=== PATIENT | female | born 1955 | race Caucasian/White ===

== ENCOUNTER → 2017-07-17 08:07 | Outpatient (CLI) | payer OTHER, SELFPAY ==
--- NOTE | 2017-07-17 08:10 | BI_ITS ---
MAMMOGRAPHY - BILATERAL SCREENING 3-D ORI SYNTHESIS REASON FOR EXAM: Female, 61 years old. Bilateral Screening 3-D tomosynthesis PERTINENT HISTORY: No significant family history. TECHNIQUE: 2-D mammograms and 3-D Ori synthesis of the breast (s) were performed. CAD was performed. COMPARISON: June 26, 2016. FINDINGS: The breast composition is composed of scattered fibroglandular density. Scattered benign calcifications are seen. No dense spiculated masses or suspicious microcalcifications are identified. No architectural distortion is identified. There is no skin thickening or retraction. There has been no significant change since the prior study. BI/SCREENING MAMM (CAD), BILAT IMPRESSION: No mammographic signs of malignancy. Routine yearly mammograms recommended. ASSESSMENT CATEGORY: BIRADS Category 1: Negative. A letter regarding these results will be sent to the patient by the facility within 30 days. FOLLOW UP RECOMMENDATION: Yearly follow up mammogram recommended. (A) Approximately 10% of breast cancers are not detected by mammography. A normal mammogram should not delay biopsy of a clinically suspicious abnormality. Electronically Signed: Shiraz Coates MD at 11:20 EDT , Service support ,
--- NOTE | 2017-07-17 08:15 | BD_ITS ---
STUDY: DUAL ENERGY X-RAY ABSORPTIOMETRY / DXA REASON FOR EXAM: Female, 61 years old. Bone density screening. TECHNIQUE: Bone Mineral Density (BMD) measurements of lumbar spine and left hip were obtained. COMPARISON: June 02, 2015 FINDINGS: Lumbar Spine (L1-L2): g/cm2 (0.795) / T-score (-3.1) / Z-score (-1.7) Findings are suggestive of osteoporosis with a high fracture risk. Left Femur Total: g/cm2 (1.111) / T-score (0.8) / Z-score (1.9) Left Femoral Neck: g/cm2 (0.933) / T-score (-0.8) / Z-score (0.6) The T-Scores on the most recent prior examination were: Lumbar Spine (L1-L4): There has been improvement of bone density since the previous examination. BD/Dexa Bone Density Study IMPRESSION: The patient is considered osteoporotic as outlined below according to World Blade Organization (WHO) criteria with a high fracture risk. There has been improvement of bone density since the previous examination. Reference Information: The T-score is the number of standard deviations above or below the standard which is normal for young adults at their peak bone mineral density. The World Health Organization (WHO) interprets the T-scores as follows: Above -1 Normal bone density Between -1 and -2.5 Osteopenia Equal to / or below -2.5 Osteoporosis As a practical clinical guideline, osteopenia may be graded as follows: Mild -1 through -1.5 Moderate -1.6 through -2.0 Severe -2.1 through -2.4 The Z-score is the number of standard deviations above or below age-matched controls. A Z-score of less than -1.5 would be considered abnormal. References: 1. NIH Osteoporosis and Related Bone Diseases http://www.osteo.org 2. International Society for Clinical Densitometry http://www.iscd.org 3. National Osteoporosis Foundation http://www.nof.org Electronically Signed: Tracy Perez MD at 9:02 EDT , Service support ,
== END ==
PROVIDERS: Family Provider Internal Medicine; PCP Internal Medicine; Visit Provider Internal Medicine
DX: Z78.0 Asymptomatic menopausal state (principal); Z12.31 Encounter for screening mammogram for malignant neoplasm of breast
CPT/HCPCS: 77063; 77067; 77080

== ENCOUNTER → 2018-01-03 09:06 | Outpatient (CLI) | payer OTHER, SELFPAY ==
--- NOTE | 2018-01-03 09:09 | RAD_ITS ---
STUDY: X-RAY - RIGHT HAND REASON FOR EXAM: Arthritis. TECHNIQUE: 3 view(s) of the hand. COMPARISON: Radiographs 04/06/2014. FINDINGS: Normal radiocarpal articulation. Normal distal radioulnar joint. There is subchondral cystic change of the proximal ulnar aspect of the lunate as on the prior study. There is a small cyst in the distal pole of the scaphoid. Normal carpal articulations Normal carpometacarpal articulation of the thumb. Normal second through fifth carpometacarpal joints. Normal metacarpi. Normal metacarpophalangeal joint of the thumb. Normal interphalangeal joint of the thumb. Normal proximal and distal phalanges of the thumb. There is a subchondral cyst of the radial aspect of the third metacarpal head as on the prior study. Normal proximal and distal interphalangeal joints of the second through fifth fingers. Normal phalanges of the second through fifth fingers. The soft tissue structures are unremarkable. RAD/Hand Min 3 Views IMPRESSION: Cysts in the lunate, scaphoid and third metacarpal head. Electronically Signed: Estuardo Gutierrez MD at 9:57 EDT Tel , Service support ,
--- NOTE | 2018-01-03 09:09 | RAD_ITS ---
STUDY: X-RAY - LEFT KNEE REASON FOR EXAM: Arthritis. TECHNIQUE: 4 view(s) of the knee. COMPARISON: Radiographs 08/15/2016. FINDINGS: Normal visualized distal femur. Normal visualized proximal tibia and fibula. Normal proximal tibiofibular articulation. There is moderate joint space narrowing of the medial femorotibial compartment, increased since the prior study. Normal lateral femorotibial compartment. There is mild joint space narrowing of the patellofemoral articulation, similar to the prior study. The soft tissue structures are unremarkable. RAD/Knee 4 or More Views IMPRESSION: Degenerative arthrosis of the medial femorotibial and patellofemoral compartments. Electronically Signed: Estuardo Gutierrez MD at 9:30 EDT Tel , Service support ,
--- NOTE | 2018-01-03 09:09 | RAD_ITS ---
STUDY: X-RAY - LEFT HAND REASON FOR EXAM: Arthritis. TECHNIQUE: 3 view(s) of the hand. COMPARISON: Radiographs 04/06/2014. FINDINGS: Normal radiocarpal articulation. Normal distal radioulnar joint. There is an erosion of the proximal lunate without interval change. Normal carpal articulations There are marginal osteophytes and joint moderately severe space loss of the carpometacarpal articulation of the thumb as on the prior study. Normal second through fifth carpometacarpal joints. Normal metacarpi. Normal metacarpophalangeal joint of the thumb. Normal interphalangeal joint of the thumb. Normal proximal and distal phalanges of the thumb. Normal metacarpophalangeal joints of the second through fifth fingers. Normal proximal and distal interphalangeal joints of the second through fifth fingers. Normal phalanges of the second through fifth fingers. The soft tissue structures are unremarkable. RAD/Hand Min 3 Views IMPRESSION: Erosion of the lunate without interval change. Degenerative arthrosis of the first carpometacarpal joint. Electronically Signed: Estuardo Gutierrez MD at 9:58 EDT Tel , Service support ,
--- NOTE | 2018-01-03 09:09 | RAD_ITS ---
STUDY: X-RAY - LEFT FOOT CLINICAL: Arthritis. TECHNIQUE: 3 view(s) of the foot. COMPARISON: Radiographs 04/06/2014. FINDINGS: Normal talus, calcaneus, and tarsal bones. Normal visualized subtalar, talonavicular, calcaneocuboid, tarsal and tarsometatarsal articulations. Normal metatarsi. Normal metatarsophalangeal joint of the great toe. There is a bipartite tibial sesamoid. There is interval development of joint space narrowing of the interphalangeal joint of the great toe. Normal phalanges of the great toe. Normal second through fifth metatarsophalangeal joints. Normal interphalangeal joints and phalanges of the lesser toes. The soft tissue structures are unremarkable. RAD/Foot min 3 Views IMPRESSION: Degenerative arthrosis of the interphalangeal joint of the first digit. Electronically Signed: Estuardo Gutierrez MD at 9:44 EDT Tel , Service support ,
--- NOTE | 2018-01-03 09:09 | RAD_ITS ---
STUDY: X-RAY - RIGHT KNEE REASON FOR EXAM: Arthritis. TECHNIQUE: 4 view(s) of the knee. COMPARISON: None. FINDINGS: Normal visualized distal femur. Normal visualized proximal tibia and fibula. Normal proximal tibiofibular articulation. There is mild joint space narrowing of the medial femorotibial compartment. Normal lateral femorotibial compartment. There is mild joint space narrowing of the patellofemoral articulation. The soft tissue structures are unremarkable. RAD/Knee 4 or More Views IMPRESSION: Mild degenerative arthrosis of the medial femorotibial and patellofemoral compartments. Electronically Signed: Estuardo Gutierrez MD at 9:30 EDT Tel , Service support ,
--- NOTE | 2018-01-03 09:09 | RAD_ITS ---
STUDY: X-RAY - RIGHT FOOT CLINICAL: Arthritis. TECHNIQUE: 3 view(s) of the foot. COMPARISON: Radiographs 04/06/2014. FINDINGS: Normal talus, calcaneus, and tarsal bones. Normal visualized subtalar, talonavicular, calcaneocuboid, tarsal and tarsometatarsal articulations. Normal metatarsi. There is moderate joint space narrowing of the metatarsophalangeal joint of the great toe as on the prior study. Normal tibial and fibular sesamoid bones. Normal interphalangeal joint of the great toe. Normal phalanges of the great toe. Normal second through fifth metatarsophalangeal joints. Normal interphalangeal joints and phalanges of the lesser toes. The soft tissue structures are unremarkable. RAD/Foot min 3 Views IMPRESSION: Degenerative arthrosis of the first metatarsophalangeal joint. Electronically Signed: Estuardo Gutierrez MD at 9:44 EDT Tel , Service support ,
== END ==
PROVIDERS: Family Provider Internal Medicine; PCP Internal Medicine; Visit Provider Internal Medicine
DX: M25.50 Pain in unspecified joint (principal)
CPT/HCPCS: 73130; 73564; 73630

== ENCOUNTER 2018-06-24 08:00 | Outpatient (RCR) | payer OTHER, SELFPAY ==
--- NOTE | 2018-05-23 10:28 | HP.PTEVAL_ITS ---
Patient's Visit Information TOI SANDOVAL is a 62 year old F referred to Physical Therapy by Meera James DO with a diagnosis of L knee OA, recent stem cell injection. Date of Evaluation: 05/23/18 Physical Therapist: Quoc Burt DPT - Visit Plan Frequency: 2x /Week Duration: 4 Weeks Plan: Start with OKC hip/core/knee stability exercises. Add in CKC as tolerated. Do not push through pain with exercises. May use ice to reduce symptoms. - Subjective Findings: Pt. is here today for her initial evaluation with L knee pain. 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 Pt. reports having steroid injections, stem cell injections. Pt. has a L medial meniscal tear and has OA at medial and patellar joints. Increased pain: walking, kneeling, steps. Better: stopping doing the things that make it worse. Ice has beneficial. Pt. denies N/T in either LE. Pt. is to follow up with physician on . Pt. 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 - Pain L knee Pain Intensity (Out of 10): 0 Pain Intensity Range: 0, 3 Comment: popping - Objective POSTURE: Pt. stands with slight knee flexion on LLE, wt. shift to R side. PALPATION: Pt. has tenderness at medial joint line and medial/lateral aspect of popliteal fossa. NEURO: Normal sensation, normal DTR bilatearlly. ROM: R knee 0-0-137deg. L knee 0-2-119deg increased pain at end range. MMT: RLE- ankle 5/5 throughout; knee- ext 4+/5, flexion 4+/5: hip- flexion 4+/5, abd 4/5, ext 4+/5. LLE- ankle 5/5 throughout; knee- ext 4/5, flexion 4/5; hip- flexion 4/5, abd 4/5, ext 4+/5. Core strenth- poor+. GAIT: Pt. ambulates without AD. Pt. lacks TKE on LLE duing stance phase and slight decrease in knee flexion during swing phase. STAIRS: step to pattern loading RLE only with 2 HR. - Goals Goal 1:: Pt. to be I with HEP. Goal Time Frame: 4-6 Weeks Goal 2:: Pt. to have L knee ROM to 0-0-125deg without increase in symptims. Goal Time Frame: 4-6 Weeks Goal 3:: Pt. to ambulate unlimited distances without increase in symptoms. Goal Time Frame: 4-6 Weeks Goal 4:: Pt. to sleep throughout the night without increase in symptoms. Goal Time Frame: 4-6 Weeks Goal 5:: Pt. to have increased L LE strenth by 1/2 grade of all effected musculature. Goal Time Frame: 4-6 Weeks Goal 6:: Pt. to negotiate steps with reciprocal pattern with 1 HR without increase in symptoms. Goal Time Frame: 4-6 Weeks - Rehabilitation Potential Physical Therapy Diagnosis: Pt. has signs and symptoms consistent with L knee OA. Pt. had recent stem cell injection and is need of LLE and core strengthening to reduce stress applied to L knee joint with all functional mobility. Rehabilitation Potential: Good - Anticipated Interventions Patient/Client Instruction: Educate patient on: Condition, Plan of Care, Risk Factors, Benefits of Fitness Program For the Purpose of:: To facilitate caregiver knowledge, To improve self management, To prevent re-injury, To improve ability to perform tasks related to life management, To improve tolerance to ADL's Therapeutic Exercise to Include: Strength training, Power training, Endurance training, Balance training, Postural training, Flexibilty training, Gait and locomotor training, Passive ROM, Active ROM For the Purpose of:: To decrease pain, To increase ROM, To improve nutrient delivery to tissue, To increase oxygenation perfusion, To improve muscle performance and motor function, To improve ability to perform ADL's, To improve health of tissue, To decrease soft tissue restriction, To increase flexibility/ROM IF ES: Yes Cryotherapy (ice pack, ice massage): Yes Vasopneumatic device: Yes For the Purpose of:: To decrease pain, To decrease swelling/inflammation, To increase ROM Thank you for the opportunity to evaluate your patient. For Medicare and Medicare HMO plans, please review the plan of care and approve it. It will need to be FAXED BACK to us at [phone] for Medicare purposes. For Medicare only, by signing this I certify the plan of care. Please let me know if there are questions or concerns regarding this plan of care. Physician Signature: Date:
--- NOTE | 2018-06-24 09:24 | HP.PTDCSUM ---
HP - PT D/C Summary It has been my pleasure to treat TOI SANDOVAL under orders from Meera James DO, for the diagnosis of L knee OA, recent stem cell injection for a total of 9 visit(s). Discharge Date: 06/24/18 Please see the following information for a summary of their discharge status. - Subjective Subjective: Pt. reports I am doing much better.' Pt. reports being 85% better overall. She is independent with HEP and is completing. Pt. reports minimal symptoms and is pleaesd with her progress. - Pain L knee Pain Intensity (Out of 10): 1 - Overall Improvement % Improvement: 85 - Objective Objective/Function: Pt. has good ROM, mild lacking in ext. Pt. has slight tenderness at end ranges of motion. Pt. is able to ambulate unlimited distances. Pt. is able to negotiate steps wtih mild increas in symptoms with descending. Pt. - Goals Goal 1:: Pt. to be I with HEP. Goal Progress: Goal Met Goal 2:: Pt. to have L knee ROM to 0-0-125deg without increase in symptims. Goal Progress: Goal Met Goal 3:: Pt. to ambulate unlimited distances without increase in symptoms. Goal Progress: Goal Met Goal 4:: Pt. to sleep throughout the night without increase in symptoms. Goal Progress: Goal Met Goal 5:: Pt. to have increased L LE strenth by 1/2 grade of all effected musculature. Goal Progress: Goal Met Goal 6:: Pt. to negotiate steps with reciprocal pattern with 1 HR without increase in symptoms. Goal Progress: Progressing - Plan Plan: curls to add next session for improved strngth in LE for more ease with ADLs - D/C Information Discharge Comments: Pt. was treated for her L knee pain with PT. Pt. focused on OKC exercises, ROM and quad/glute/core stability exercises. Pt. is independent with her HEP. Pt. is back to doing more gait and stair negotiation. Pt. will be DC to HEP at this point in time. If there are questions or concerns regarding this patient's physical therapy, please feel free to call me at [phone]. Thank you for the referral of this patient. Sincerely, Quoc Burt DPT
== END 2018-06-24 19:00 | disposition home or self-care (01) ==
LOC: PT 08:00
PROVIDERS: Family Provider Internal Medicine; PCP Internal Medicine; Referring Provider Internal Medicine; Visit Provider Internal Medicine
DX: M25.562 Pain in left knee (principal); M17.12 Unilateral primary osteoarthritis, left knee
CPT/HCPCS: 97110; 97161

== ENCOUNTER 2018-07-12 13:26 | Emergency (ER) | payer OTHER, SELFPAY ==
[2018-07-12 13:28] VITALS: BP 106/60; PULSE 110; RESP 18; TEMP 36.6; O2SAT 97; BMI 31.1
--- NOTE | 2018-07-12 13:49 | CT_ITS ---
STUDY: CT BRAIN WITHOUT CONTRAST REASON FOR EXAM: Female, 62 years old. T Trauma CT - Brain without, HIT RIGHT POST SKULL ON 07-08-18. NO LOC RADIATION DOSAGE (If Supplied By Facility): CTDIvol = ( 44.99 ) mGy, DLP = ( ) mGycm TECHNIQUE: Transaxial CT imaging of the brain was performed without administration of intravenous contrast material. Individualized dose optimization techniques were used for this CT. COMPARISON: None. FINDINGS: There is cerebral atrophy with widening of the extra-axial spaces and ventricular dilatation. There are areas of decreased attenuation within the white matter tracts of the supratentorial brain, consistent with microvascular disease changes. There is no intracranial hemorrhage. There are no findings of an acute ischemic infarction. Normal soft tissue structures. Normal visualized paranasal sinuses. CT/Brain/Head without Contrast IMPRESSION: Chronic involutional changes of the brain. Electronically Signed: Molly Clay MD at 14:30 EDT Tel , Service support ,
[2018-07-12] MEDS: HYDROcodone Bitartrate/Apap 5/325 Tablet PO (14:01)
[2018-07-12] MEDS: LORazepam 0.5 MG Tablet PO (14:01)
--- NOTE | 2018-07-12 14:26 | ED.DCSUM_ITS ---
- ER Visit Summary Date of Service: 07/12/18 Chief Complaint: Head injury History of Present Illness: The patient is a 62 F presenting with head injury. Patient fell hitting her head. This occurred on Saturday. She states she was attempting to stand on a chair and fell hitting her head on the wooden floor. She did not lose consciousness. No amnesia to the event. No vomiting. She is not on anticoagulants. She tried Tylenol at home. She presents due to persistent headache. Physical Examination: Vitals are stable. Patient is afebrile. Alert no acute distress. HEENT exam is unremarkable. Neck is supple, nontender Lungs are clear and equal bilaterally. Heart is regular rate and rhythm. Abdomen is soft nontender nondistended. Extremities are unremarkable. Skin is warm and dry. No focal neurologic deficit. Normal strength and sensation Remainder of exam is unremarkable. Emergency Department Course and Treatment: Patient states she is claustrophobic and she is given Ativan p.o. She was given [place]. CT head shows chronic changes. On reevaluation, patient is resting comfortably and feels improved. She will follow-up with her primary care physician. Advised head injury instructions. Advised return to ED for worsening complaints. Disposition: Discharge home Impression: Closed head injury This note was generated with [employer] dictation software. It may contain incorrect words, spelling, and punctuation that were not noted in review of the chart prior to signing ED Disposition - Plan for ED Patient: Instructions: ED Head Injury Closed Referrals: Meera James DO [Primary Care Provider] -
--- NOTE | 2018-07-12 14:44 | ED.DEP ---
ED Disposition - Plan for ED Patient: Instructions: ED Head Injury Closed Referrals: Meera James DO [Primary Care Provider] -
== END 2018-07-12 15:19 | disposition home or self-care (01) ==
PROVIDERS: Emergency Provider Emergency Medicine; Family Provider Internal Medicine; PCP Internal Medicine
DX: S09.90XA Unspecified injury of head, initial encounter (principal); W19.XXXA Unspecified fall, initial encounter; Y93.9 Activity, unspecified; Y92.9 Unspecified place or not applicable; F40.240 Claustrophobia; I10 Essential (primary) hypertension; Z79.84 Long term (current) use of oral hypoglycemic drugs; Z79.899 Other long term (current) drug therapy
CPT/HCPCS: 70450; 99282

== ENCOUNTER → 2018-08-04 | Outpatient (CLI) | payer OTHER, SELFPAY ==
[2018-07-12 13:28] VITALS: BMI 31.1
--- NOTE | 2018-08-04 06:59 | BI_ITS ---
MAMMOGRAPHY - BILATERAL SCREENING REASON FOR EXAM: Female, 62 years old. Routine annual screening examination. PERTINENT HISTORY: Sisters with breast cancer. TECHNIQUE: Digital bilateral breast rebeka (3D mammographic acquisition) in the CC and MLO projections. 2-D mediolateral oblique (MLO) and craniocaudad (CC) views of both breasts were obtained. CAD: Full Field Digital Mammography with Computer Added Detection was performed. COMPARISON: Comparison is made with prior study dated July 17, 2017 and June 26, 2016. FINDINGS: Breast Composition: There are scattered areas of fibroglandular density. There are no dominant masses or suspicious calcifications. No other significant abnormalities are identified. There has been no significant change since the prior study. BI/SCREENING MAMM (CAD), BILAT IMPRESSION: Stable bilateral screening mammogram. Yearly follow-up mammogram recommended. (A) ASSESSMENT CATEGORY: BIRADS Category 1: Negative. A letter regarding these results will be sent to the patient by the facility within 30 days. Approximately 10% of breast cancers are not detected by mammography. A normal mammogram should not delay biopsy of a clinically suspicious abnormality. [id number] Electronically Signed: Oliverio Echavarria, at 8:35 EDT , Service support ,
== END | disposition home or self-care (01) ==
PROVIDERS: Family Provider Internal Medicine; PCP Internal Medicine; Referring Provider Internal Medicine; Visit Provider Internal Medicine
DX: Z12.31 Encounter for screening mammogram for malignant neoplasm of breast (principal)
CPT/HCPCS: 77063; 77067

== ENCOUNTER → 2018-10-08 | Outpatient (CLI) | payer OTHER, SELFPAY ==
--- NOTE | 2018-10-08 11:30 | MRI_ITS ---
STUDY: MRI BRAIN WITHOUT CONTRAST REASON FOR EXAM: Female, 62 years old. Head trauma, fall from ladder. TECHNIQUE: Standardized multiplanar fat and water weighted pulse sequences were obtained. COMPARISON: 12 July 2018. FINDINGS: There is mild cerebral atrophy with widening of the extra-axial spaces and ventricular dilatation. There are a limited number of small white matter hyperintensities, distributed throughout the deep white matter tracts of the cerebral hemispheres, consistent with mild chronic white matter ischemic changes. There is no evidence for recent intracranial ischemia or other cause of cytotoxic edema on diffusion weighted imaging (DWI). Normal T2* images of the brain without demonstrated susceptibility artifact. There is no demonstrated hemosiderin stain. Normal bilateral basal ganglia. Normal thalami. There is no extra-axial fluid accumulation. Normal flow voids within the major intracranial circulation suggesting patency by spin echo criteria. Normal sella turcica, pituitary gland, infundibular stalk, optic chiasm and hypothalamus. Normal tectal plate and pineal gland. Normal midbrain, radhika and medulla. Normal cerebellum. Normal basal cisterns. Normal bilateral temporal bones. Normal bilateral internal auditory canals. No demonstrated orbital abnormality, within the constraints of a routine brain study. Normal visualized paranasal sinuses. Normal calvarium and skull base. Normal visualized soft tissue structures. Normal visualized upper cervical spine. MRI/Brain without Contrast IMPRESSION: No evidence of acute intracranial bleed, mass or ischemia. Electronically Signed: Silver Mendoza DO at 12:27 EDT , Service support ,
== END | disposition home or self-care (01) ==
LOC: MRI 10:58
PROVIDERS: Family Provider Internal Medicine; PCP Internal Medicine; Referring Provider Internal Medicine; Visit Provider Internal Medicine
DX: S09.90XS Unspecified injury of head, sequela (principal)
CPT/HCPCS: 70551

== ENCOUNTER 2019-02-18 10:00 | Outpatient (RCR) | payer OTHER, SELFPAY ==
--- NOTE | 2018-10-06 09:59 | HP.PTEVAL ---
Patient's Visit Information TOI SANDOVAL is a 62 year old F referred to Physical Therapy by Meera James DO with a diagnosis of Brain injury and vertigo. Date of Evaluation: 10/06/18 Physical Therapist: LIGIA Armando - Visit Plan Frequency: 3x /Week Duration: 2 Months Plan: 3X/ week for 8 weeks with HEP to work on VOR including eye and then progressing to head movments, gait training, functional balance activities including vestibular inputs with HEP - Subjective Findings: Pt reports that her balance is off. SHe is off work now and fell off a ladder and hit her head. Her balance issues are worse after the fall. She went to the ER 4 (07-12-18) days after the fall. THey did a catscan and sent her home. Her dizziness has gotten worse. She has poor tolerance of screens. 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 said to be off work and to go to PT. SHe had JC after the fall. Only has an occ JC but has one right now. The slurred speech started before the fall but has gotten significantly worse. She has an MRI Saturday of the brain. She is seeing Dr Valderrama in October. She had shingles a few years ago. She fell September 15 (wore new flat shoes at work and went from tile to carpet and fell). She is afraid of falling. She reports that she is weak.... but she has been taking it easier. She is and lives with in 1 story home. SHe has stairs to the basement but does not use them. Years ago had vertigo and saw [facility] and had Eply. Pt explained her dizziness as increase when getting up or laying down. Room spins for seconds if she lays down and then it goes away. She says that she feels different then when she saw [facility] before. She reports that [place] in [place] really sets her balance and dizziness off....she has to stop and regain her balance. - Pain JC Pain Intensity (Out of 10): 1 - Objective Gait: Pt walks with arms out stretched, decreased stride and heel to toe gait pattern with increase verring. Turning 180 degrees: pt needs to stop and gain her balance before she takes several small steps to turn and generally reaches out for the wall rail to turn. LE MMT: full ROM bridge, B hip abd 4/5, B hip flex 4-/5, B knee ext 4/5, B knee flex 4-/5. Pt is able to heel and toe raise with the use of her UE for support. sit to stand: pt is able to get up out of a chair without the use of her UE's. FGA: 10. CATSIB: 57. Smooth pursuits: decreases ability to track horizontally... better tracking vertically. VOR cx... pt had increase dizziness with moving head within first couple of head movements. - Balance Scores Functional Gait Assessment Score: 10 % Disability: 66.6700 CATSIB Score (Max score 120 seconds): 57 - Goals Goal 1:: I HEP Goal Time Frame: 8-12 Weeks Goal 2:: Be able to walk with head turns without veering and without dizziness Goal Time Frame: 8-12 Weeks Goal 3:: Increase CATSIB score to 110/120 to prevent falls Goal Time Frame: 8-12 Weeks Goal 4:: Increase FGA by 8 points to 18 to decrease fall risk. Goal Time Frame: 8-12 Weeks - Rehabilitation Potential Rehabilitation Potential: Good - Anticipated Interventions Patient/Client Instruction: Educate patient on: Plan of Care For the Purpose of:: To improve muscle performance and motor function, To improve ability to perform ADL's, To increase tolerance to activity/condition/position, To improve performance and independence with ADL's, To decrease level of supervision to perform tasks, To improve ability of physical actions for home/community/work/leisure, To improve gait and locomotor functions, To improve balance, To improve safety with gait Therapeutic Exercise to Include: Strength training, Endurance training, Balance training, Postural training, Gait and locomotor training, Neuromotor development For the Purpose of:: To improve ability to perform ADL's, To increase tolerance to activity/condition/position, To improve performance and independence with ADL's, To decrease level of supervision to perform tasks, To improve ability of physical actions for home/community/work/leisure, To improve gait and locomotor functions, To improve balance, To improve safety with gait, To improve safety Functional Training to Include: Gait training For the Purpose of:: To improve gait and locomotor functions, To improve safety with gait Thank you for the opportunity to evaluate your patient. For Medicare and Medicare HMO plans, please review the plan of care and approve it. It will need to be FAXED BACK to us at [phone] for Medicare purposes. For Medicare only, by signing this I certify the plan of care. Please let me know if there are questions or concerns regarding this plan of care. Physician Signature: Date:
--- NOTE | 2018-10-31 13:43 | HP.PTREVAL_ITS ---
Meera James, DO, It has been my pleasure to treat TOI SANDOVAL over the last 11 visits for Brain injury and vertigo. Please see the progress note below for an update on the physical therapy plan of care! Subjective: Pt is able to sit without the room spinning and walk straight and feel comfortable. SHe reports that it is turning around that she feels the most off balance and looking different directions. Saw Neurologist today and he wants her to continue with PT and Speech and Dx Post concussion syndrome. She is doing sm pursuit exercises, walking in backyard, and turning head and walking. Objective/Function: FGA 11. Smooth pursuit: 60 sec ( horizontal) dizziness still present but able to tract it better. Pt is able to walk straight ahead with raising her arms or talking with her hands but she has to stop and turn slowly to turn around 180 degrees. Pt is progressing with her balance and her gait is less guarded!! Plan Plan: work on turning 180 degrees as well. 3X/ week for 8 weeks with HEP to work on VOR including eye and then progressing to head movments, gait training, functional balance activities including vestibular inputs with HEP Goals Goal 1:: I HEP Goal Time Frame: 8-12 Weeks Goal Progress: Progressing Goal 2:: Be able to walk with head turns without veering and without dizziness Goal Time Frame: 8-12 Weeks Goal Progress: Progressing Goal 3:: Increase CATSIB score to 110/120 to prevent falls Goal Time Frame: 8-12 Weeks Goal 4:: Increase FGA by 8 points to 18 to decrease fall risk. Goal Time Frame: 8-12 Weeks Anticipated Interventions Patient/Client Instruction: Educate patient on: Plan of Care For the Purpose of:: To improve muscle performance and motor function, To improve ability to perform ADL's, To increase tolerance to activity/condition/position, To improve performance and independence with ADL's, To decrease level of supervision to perform tasks, To improve ability of physical actions for home/community/work/leisure, To improve gait and locomotor functions, To improve balance, To improve safety with gait Therapeutic Exercise to Include: Strength training, Endurance training, Balance training, Postural training, Gait and locomotor training, Neuromotor development For the Purpose of:: To improve ability to perform ADL's, To increase tolerance to activity/condition/position, To improve performance and independence with ADL's, To decrease level of supervision to perform tasks, To improve ability of physical actions for home/community/work/leisure, To improve gait and locomotor functions, To improve balance, To improve safety with gait, To improve safety Functional Training to Include: Gait training For the Purpose of:: To improve gait and locomotor functions, To improve safety with gait Please do not hesitate to contact me at [phone] by phone or Fax: if you have questions or concerns regarding this new plan of care! Sincerely, Bella Arnold MPT
--- NOTE | 2018-10-31 15:51 | HP.SP.AD ---
History - History Date of Eval: 10/31/18 Previous speech therapy: No Other Relevant Medical History/Diagnoses/Surgery: Pt original fall from ladder resulting in right dorsal portion of head hit; secondary fall in September with no impact to head. Smoking Status: Former smoker Hx Smoking: Yes Years Smokin Hx Smoking Cessation Date: 1 year but used Vap until 4 months ago Hx Tobacco Use: No - Pain Is pain an issue with your current prescribed condition?: No - Personal Occupation: Assisted living staff Right Hearing Abillity: Normal Left Hearing Abillity: Normal Visual Assistive Devices: None Patients Living Arrangements: With Significant Other Patient Allergies - Allergies Allergies Penicillins [PCN] Allergy (Verified 07/12/18 13:30) Unknown Subjective Oral Motor - Subjective Patient Reports: Slurred Speech, Difficulty being Understood - Comments Comments: Labial closure and retraction wnl, lingual protrution and lateralization wnl. 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 Objective Oral Motor - Oral Status Dentition: WNL - Labial Impairment: WNL Observation at Rest: WNL Closure: WNL Pucker: WNL Retraction: WNL Alternating Pucker/Retraction: WNL Involuntary Movement noted: No - Lingual Impairment: Moderate Protrusion: WNL Retraction: WNL Lateralization: WNL Involuntary Movement: No - Lingual Comments Comments: Pt complaining of tongue not moving where it needs to during speech but able to follow directions for movements during assessment. - Jaw Impairment: WNL Opening: WNL Closing: WNL - Respiratory Status Respiratory Status: Room Air Subjective Fluency - Fluency Subjective: Pt reporting stuttering during speech with mild repetition and sound prolongation noted during conversational speech specifically during longer phrases. Objective Fluency - Type of Dysfluencies Dysfluencies Observed: Part-word repitition, Sound prolongation Subjective Articulation/Phon - Subjective Patient is: Difficult to understand Concerns: Pt articulation is impaired with a slurring of speech noted during conversation. Pt reports she was always a lazy speaker but is concerned because she can not produce words correctly. Subjective Artic/Phon - Articulation Intelligibility percentage in single words: 90% Intelligibility percentage in conversation: 85% Errors include: Initial Position: /s/, /s/ blends, /z/ Errors include: Medial Position: /s/, /s/ blends Errors include: Final Position: /s/ - Stimulability Patient is stimulable for the following sounds: /s/ with position of teeth and tongue - Phonological Processes Additional Additional Information: Pt demonstrating difficulty with articulation of multisyllabic words during conversational speech. Plan - Plan Plan: Direct skills speech therapy warrented to target articulation and fluency through the use of repeated practice, use of compensatory strategies, verbal and visual cuing and modeling, and immediate feedback. Errors in articulation and fluency can negatively impact the patient's ability to expression needs and wants in a variety of settings and communicate effectively with others. - Recommendations MBS: No Treatment Warranted: No - Frequency Frequency: 1x/Week Duration: 4-6 Months - Prognosis Prognosis: Good - Goal #1-5 Goal #1: Pt will utilize compensatory strategies (rate of speaking, annunciation, breaking phrases into small portions) to increase intelligibilty during structured speech tasks with 90% accuracy in 3/4 consecutive session. Prompts: Min Goal #2: Pt will correctly produce /s/ and /s/ blends in all positions in words, sentences, and conversational speech with 90% accuracy in 3/4 consecutive session. Prompts: Min Goal #3: Pt will use compensatory stratgies for motor planning to increase articulation during conversational speech with 90% accuracy in 3/4 consecutive sessions. Education - Patient has Indicated that the Following Identified Educational Needs: None The Patient has indicated that they have no educational or learning abilities that may effect their care.: Yes - Patient Instruction Patient Education: Diagnosis, Treatment Plan, Goals Person Taught: Patient Teaching Method: Discussion, Demonstration Response to teaching: Verbalize understanding
--- NOTE | 2019-01-05 10:40 | HP.PTREVAL ---
Meera James, DO, It has been my pleasure to treat TOI SANDOVAL over the last 29 visits for Brain injury and vertigo. Please see the progress note below for an update on the physical therapy plan of care! Subjective: Pt goes back to work a week from today and going to work 2 5 hour days and 1 hour per day on the computer. She was on the computer for 1 hour this weekend and she was ok. She has had no falls. She has an over the shoulder brief case and she should be fine. She has to see patients within 7 days of admission ( she is a manager of housekeeping). Pt said Dr Valderrama wanted her to do genetic testing but it will cost her $7,000 out of pocket. She knows that her cerebellum is small. Objective/Function: Stairs: Walks up and down the stairs recip with slight hesitation wtih 2 hand rails but much improved speed and confidence. Gait: Walks with slight veering to the R at times and walks with arms outstretched. Turns 180 degrees: with arms outstretched and slow cautious steps. FGA: 11. CATSIB: 91 Plan Plan: Introduce cane use to learn how to use if need be. Give HEP handouts next week for pt to work on LE strength and VOR exercises with head turns. See Pt 1 X/ week for 6 more weeks to wean off PT and more towards HEP for progressive VOR exercises, head turns, vestibular inputs, gait training with HEP Goals Goal 1:: I HEP Goal Time Frame: 8-12 Weeks Goal Progress: Goal Met Goal 2:: Be able to walk with head turns without veering and without dizziness Goal Time Frame: 8-12 Weeks Goal Progress: Progressing Goal 3:: Increase CATSIB score to 110/120 to prevent falls Goal Time Frame: 8-12 Weeks Goal Progress: Progressing Goal 4:: Increase FGA by 8 points to 18 to decrease fall risk. Goal Time Frame: 8-12 Weeks Goal Progress: Not Progressing Anticipated Interventions Patient/Client Instruction: Educate patient on: Plan of Care For the Purpose of:: To improve muscle performance and motor function, To improve ability to perform ADL's, To increase tolerance to activity/condition/position, To improve performance and independence with ADL's, To decrease level of supervision to perform tasks, To improve ability of physical actions for home/community/work/leisure, To improve gait and locomotor functions, To improve balance, To improve safety with gait Therapeutic Exercise to Include: Strength training, Endurance training, Balance training, Postural training, Gait and locomotor training, Neuromotor development For the Purpose of:: To improve ability to perform ADL's, To increase tolerance to activity/condition/position, To improve performance and independence with ADL's, To decrease level of supervision to perform tasks, To improve ability of physical actions for home/community/work/leisure, To improve gait and locomotor functions, To improve balance, To improve safety with gait, To improve safety Functional Training to Include: Gait training For the Purpose of:: To improve gait and locomotor functions, To improve safety with gait Please do not hesitate to contact me at [phone] by phone or if you have questions or concerns regarding this new plan of care! Sincerely, Bella Arnold MPT
--- NOTE | 2019-03-24 12:33 | HP.PTDCNRP_ITS ---
HP - Discharge Summary (1) - Patient Information TOI SANDOVAL was seen in my office for initial evaluation on 10/06/18. The following Plan of Care was established for this patient: Initial Frequency: 3x /Week Initial Duration: 2 Months - Anticipated Interventions Patient/Client Instruction: Educate patient on: Plan of Care For the Purpose of:: To improve muscle performance and motor function, To improve ability to perform ADL's, To increase tolerance to activity/condition/position, To improve performance and independence with ADL's, To decrease level of supervision to perform tasks, To improve ability of ph ysical actions for home/community/work/leisure, To improve gait and locomotor functions, To improve balance, To improve safety with gait Therapeutic Exercise to Include: Strength training, Endurance training, Balance training, Postural training, Gait and locomotor training, Neuromotor development For the Purpose of:: To improve ability to perform ADL's, To increase tolerance to activity/condition/position, To improve performance and independence with ADL's, To decrease level of supervision to perform tasks, To improve ability of physical actions for home/community/work/leisure, To improve gait and locomotor functions, To improve balance, To improve safety with gait, To improve safety Functional Training to Include: Gait training For the Purpose of:: To improve gait and locomotor functions, To improve safety with gait This patient was last seen in our office 02/11/19. Pertinent comments regarding their Physical therapy will appear below: MARIS[facility] PT At this point I will be discontinuing this patient from physical therapy. I would be happy to see this patient again in the future if found appropriate by the physician. Thank you! Bella Arnodl, MPT
== END 2019-02-18 19:00 | disposition home or self-care (01) ==
LOC: PT 10:00
PROVIDERS: Family Provider Internal Medicine; PCP Internal Medicine; Referring Provider Internal Medicine; Visit Provider Internal Medicine
DX: R47.81 Slurred speech (principal)
CPT/HCPCS: 92507; 92523; 97110; 97116; 97162; 97530

== ENCOUNTER → 2019-11-10 14:24 | Outpatient (CLI) | payer OTHER, SELFPAY ==
--- NOTE | 2019-11-10 14:28 | BI_ITS ---
MAMMOGRAPHY - BILATERAL SCREENING 3-D TOMOSYNTHESIS REASON FOR EXAM: Female, 64 years old. Routine screening PERTINENT HISTORY: No significant family history. FM HX SISTER 52(TRIPLE NEG), 2ND SISTER ESTROGEN POSITIVE, LOST 10#, RT MOLE MARKED , HX OF CYST IN LT BREAST 2 YRS AGO, PT IS BEING TREATED FOR BONE MARROW CA BUT TEST HAVE BEEN INCONCLUSIVE AFTER 2 BONE MARROW BX''S TECHNIQUE: 2-D mammograms and 3-D Tomosynthesis of the breast (s) were performed. CAD was performed. COMPARISON: 08/04/2018 FINDINGS: The breast composition is almost entirely fat. Scattered benign calcifications are seen. No dense spiculated masses or suspicious microcalcifications are identified. No architectural distortion is identified. There is no skin thickening or retraction. There has been no significant change since the prior study. BI/SCREEN MAMM (CAD) W/ORI BILAT IMPRESSION: No mammographic signs of malignancy. Routine yearly mammograms recommended. ASSESSMENT CATEGORY: BIRADS Category 1: Negative. A letter regarding these results will be sent to the patient by the facility within 30 days. FOLLOW UP RECOMMENDATION: Yearly follow up mammogram recommended. (A) Approximately 10% of breast cancers are not detected by mammography. A normal mammogram should not delay biopsy of a clinically suspicious abnormality. Electronically Signed: Mello Sherman MD at 17:16 EDT , Service support ,
--- NOTE | 2019-11-10 14:33 | BD_ITS ---
STUDY: DUAL ENERGY X-RAY ABSORPTIOMETRY / DXA REASON FOR EXAM: Female, 64 years old. Age of brisa 54. Pat is 163.6# and 60.25 and quot; a loss of 1.75 and quot; per pat. Takes Hydrea for a condition of Increased WBC and Platelets, drs are not sure why at this time. Has been on Fosamax for about 3 yrs now. Mother has osteo. Exercises a little. TECHNIQUE: Bone Mineral Density (BMD) measurements of lumbar spine and bilateral hips were obtained. COMPARISON: Comparison is made with prior examination dated 07/17/2017. FINDINGS: Lumbar Spine (L1-L4): g/cm2 (1.020) / T-score (-1.3) / Z-score (0.2) Findings are suggestive of osteopenia with a low fracture risk. Left Femur Total: g/cm2 (0.988) / T-score (-0.2) / Z-score (1.0) Left Femoral Neck: g/cm2 (0.885) / T-score (-1.1) / Z-score (0.4) Right Femur Total: g/cm2 (1.055) / T-score (0.4) / Z-score (1.6) Right Femoral Neck: g/cm2 (0.88) / T-score (-1.1) / Z-score (0.4) The T-Scores on the most recent prior examination were: Lumbar Spine (L1-L4): There has been improvement of bone density since the previous examination. Left Femur Total: which represents a worsening of 11.1%. Right Femur Total: which represents an improvement of 1.2%. BD/Dexa Bone Density Study IMPRESSION: The patient is considered osteopenic as outlined below according to World Blade Organization (WHO) criteria with a low fracture risk. There has been improvement of bone density since the previous examination. Reference Information: The T-score is the number of standard deviations above or below the standard which is normal for young adults at their peak bone mineral density. The World Health Organization (WHO) interprets the T-scores as follows: Above -1 Normal bone density Between -1 and -2.5 Osteopenia Equal to / or below -2.5 Osteoporosis As a practical clinical guideline, osteopenia may be graded as follows: Mild -1 through -1.5 Moderate -1.6 through -2.0 Severe -2.1 through -2.4 The Z-score is the number of standard deviations above or below age-matched controls. A Z-score of less than -1.5 would be considered abnormal. References: 1. NIH Osteoporosis and Related Bone Diseases http://www.osteo.org 2. International Society for Clinical Densitometry http://www.iscd.org 3. National Osteoporosis Foundation http://www.nof.org Electronically Signed: Oliverio Echavarria, at 14:35 EDT , Service support ,
== END ==
PROVIDERS: PCP Internal Medicine; Referring Provider Internal Medicine; Visit Provider Internal Medicine
DX: Z12.31 Encounter for screening mammogram for malignant neoplasm of breast (principal); Z78.0 Asymptomatic menopausal state
CPT/HCPCS: 77063; 77067; 77080

== ENCOUNTER → 2020-05-09 10:02 | Outpatient (CLI) | payer OTHER, SELFPAY ==
--- NOTE | 2020-05-09 10:33 | MRI_ITS ---
STUDY: MRI BRAIN WITHOUT CONTRAST REASON FOR EXAM: Female, 64 years old. ataxia, speech change since fall,fall hit rt side of head09/2018 TECHNIQUE: Standardized multiplanar fat and water weighted pulse sequences were obtained. COMPARISON: 10/08/2018 FINDINGS: There is mild cerebral atrophy with widening of the extra-axial spaces and ventricular dilatation. There are a limited number of small white matter hyperintensities, distributed throughout the deep white matter tracts of the cerebral hemispheres, consistent with mild chronic white matter ischemic changes. There is no evidence for recent intracranial ischemia or other cause of cytotoxic edema on diffusion weighted imaging (DWI). Normal T2* images of the brain without demonstrated susceptibility artifact. There is no demonstrated hemosiderin stain. Normal bilateral basal ganglia. Normal thalami. There is no extra-axial fluid accumulation. Normal flow voids within the major intracranial circulation suggesting patency by spin echo criteria. There is enlargement of the sella turcica with increased CSF within the sella and flattening of the pituitary gland consistent with an empty sellar syndrome. Normal infundibular stalk, hypothalamus, and optic chiasm. Normal tectal plate and pineal gland. Normal midbrain, radhika and medulla. Normal cerebellum. Normal basal cisterns. Normal bilateral temporal bones. Normal bilateral internal auditory canals. No demonstrated orbital abnormality, within the constraints of a routine brain study. Normal visualized paranasal sinuses. Normal calvarium and skull base. Normal visualized soft tissue structures. Normal visualized upper cervical spine. MRI/Brain without Contrast IMPRESSION: Involutional changes of the brain, as described above. Electronically Signed: Booker Bennett MD at 7:31 EST Tel , Service support ,
--- NOTE | 2020-05-09 10:33 | MRI_ITS ---
STUDY: MRI CERVICAL SPINE WITHOUT CONTRAST REASON FOR EXAM: Female, 64 years old. ataxia, speech change since fall,fall hit rt side of head09/2018 TECHNIQUE: Standardized fat and water weighted pulse sequences were obtained in the sagittal and axial planes. COMPARISON: None FINDINGS: Normal foramen magnum and brainstem-cervical cord junction. Normal craniovertebral junction. Normal anterior atlantoaxial articulation. Normal odontoid process. Normal cervical lordosis. Normal vertebral bodies and posterior osseous elements. C2-3: Normal endplates. Normal disc height, signal and morphology. Normal central canal and intervertebral neural foramina. C3-4: Normal endplates. Normal disc height, signal and morphology. Normal central canal and intervertebral neural foramina. C4-5: Normal endplates. Normal disc height, signal and morphology. Normal central canal and intervertebral neural foramina. C5-6: Normal endplates. Normal disc height, signal and morphology. Normal central canal and intervertebral neural foramina. C6-7: Normal endplates. Normal disc height, signal and morphology. Normal central canal and intervertebral neural foramina. C7-T1: Normal endplates. Normal disc height, signal and morphology. Normal central canal and intervertebral neural foramina. Normal cervical cord. Normal visualized soft tissue structures. MRI/Spine Cervical (Routine) IMPRESSION: Normal unenhanced MR examination of the cervical spine. Electronically Signed: Booker Bennett MD at 7:33 EST Tel , Service support ,
== END ==
PROVIDERS: PCP Internal Medicine
DX: G11.9 Hereditary ataxia, unspecified (principal); R29.2 Abnormal reflex; S19.8 Other specified injuries of neck; G95.9 Disease of spinal cord, unspecified; M50.90 Cervical disc disorder, unspecified, unspecified cervical region
CPT/HCPCS: 70551; 72141

== ENCOUNTER 2022-04-03 15:30 | Outpatient (RCR) | payer OTHER, SELFPAY ==
--- NOTE | 2022-03-05 15:04 | HP.PTEVAL ---
Patient's Visit Information TOI SANDOVAL is a 66 year old F referred to Physical Therapy by Dr. Meera James DO with a diagnosis of Knee OA, Poor Gait/Balance. Date of Evaluation: 03/05/22 Physical Therapist: Quoc Burt DPT - Visit Plan Frequency: 2x /Week Duration: 4 Weeks Plan: Start with VOR exercises seated, dynamic balance activities/standing balance activities. Add in some functional strengthening and gait progression. 03/05/22: seated horizontal VOR 3x30- increase NW. seated horizontal saccades 3x30 increase NW. Pt. to complete above as HEP. - Subjective Pt. is here today for her initial evaluation with diagnosis of R knee OA, poor gait and debility with need for evaluation for gait with device. DX/Physician Order: Knee OA, Poor Gait/Balance. Eval for Walking and Assistive Device to increase mobility for time efficiency to toliet. Present symptoms: L knee pain. Decreased Balance. Present since: Falling in 2019. Pain Scale: L knee pain - Worst 8/10, Least 0/10. Currently: L knee pain is 2/10 currently sitting in w/c. Is it getting better, worse or staying the same: Patient reports her balance is getting worse and her knee pain is staying the same. Commenced as a result of: Fell off ladder and hit head really hard in 2019. Worse: The Weather and Overuse. Better: Tylenol. Disturbed sleep: L knee pain is not disturbing sleep. Previous history/Previous treatment: Patient denies L knee surgery or injections in the past but reports she did have PT for her knee after her fall in 2019. She reports she hasn't had any other falls but her balance is just poor. States went to Rehab at [facility] for head injury after the fall. Gait: Wall and furniture walks in the house. Bowel or Bladder Dysfunction: Patient denies urinary incontinence or leaking. Patient reports she is no longer having bowel incontinence since seeing Dr. James and changing her toiletings habits. Imaging: No recent Knee x-rays. PMH/Recent major surgery: TBI 2019. HTN. H/O Chemotherapy. Other: Patient reports she is using her mom's walker (mom does not need it) and needs to know what assistive device would be best for her. Has a 4 point cane that she uses at home and she can use it alone but she she does better if she hangs onto her with it too. Recently moved to a home on one floor and one step in/out of house with Grab Bar and patient reports she can go in and out alone. Patient reports she drove herself to PT today. Patient also reports she has a representative personal service come to her house 3 times a week. - Objective POSTURE: Pt. had slight FH posture with rounded shoulders. Pt. has slight retro lean overall, especially in stance without AD. PALPATION: Pt. has no pain with palpation of BLEs, except she does have marked increased edema in her L distal LE. NEURO: Pt. has normal sensation throughout BLEs. Normal 2+ DTR of BLEs. Pt. is able to rise on heels and toes without issues, balance device required. Pt. reports dizziness with most mobility and head movements. + with horizonal VOR, less issues with vertical VOR. She also had + signs with horizontal saccades, less with vertical. ROM: Pt. has good ROM of BLEs and lumbar spine. Normal ankle ROM noted. MMT: RLE: ankle 5/5 throughout; knee: 5/5 throughout; hip: flexion 4/5, adb 4/5 ext 4/5. LLE: ankle and knee 5/5 throughout; hip: 4/5 throughout. GAIT: Pt. ambulates with a FWW today. She has fwrd flexed posture, decreased tempo and decreased step length. She was able to ambulate without AD, but more limited she ambulated with guarded posture and with frequent attempts to hold onto hallway railing. STAIRS: Pt. is able to complete with step to pattern with use of HRs, not able to safely negotiate with 1 HR. - Balance/Special Test Scores Functional Gait Assessment Score: 4 % Disability: 86.6700 Lower Extremity Functional Score: 29 TUG Test Time Seconds: 28 - Goals Goal 1:: LTG: Pt. to be I with HEP for vestibular, gait, and BLE strength. Goal Time Frame: 4-6 Weeks Goal 2:: LTG: Pt. to walk throughout home with good safety with least restrictive device. Goal Time Frame: 4-6 Weeks Goal 3:: LTG: Pt. to ambulate unlimited distances with LRD with good safety and I. Goal Time Frame: 4-6 Weeks Goal 4:: STG: Pt. to report decreased vestibular symptoms with daily activities. Goal Time Frame: 2-4 Weeks Goal 5:: LTG: Pt. to have have improved TUG time to less than 12 seconds without use of AD. Goal Time Frame: 4-6 Weeks Goal 6:: LTG: Pt to have improved FGA to at least 15/30 indicating improved balance and safety. - Rehabilitation Potential Physical Therapy Diagnosis: Pt. had signs and symptoms consistent with imbalance and poor gait. Pt. really requires use of FWW for all mobility at this point in time. She also has some signs of vestibular issues as seen in VOR and saccade testing. I would like to work on both her balance, gait and vestibular issues in PT in order to increase her safety and stability with all functional mobility. Rehabilitation Potential: Fair - Anticipated Interventions Patient/Client Instruction: Educate patient on: Condition, Plan of Care, Risk Factors, Benefits of Fitness Program For the Purpose of:: To improve decision making, To facilitate caregiver knowledge, To improve self management, To prevent re-injury, To improve ability to perform tasks related to life management, To improve tolerance to ADL's Therapeutic Exercise to Include: Strength training, Power training, Endurance training, Balance training, Postural training, Flexibilty training, Gait and locomotor training For the Purpose of:: To decrease pain, To increase ROM, To improve nutrient delivery to tissue, To increase oxygenation perfusion, To improve gait and locomotor functions, To improve health of tissue, To decrease soft tissue restriction, To increase flexibility/ROM, To improve endurance, To improve balance, To improve safety with gait Thank you for the opportunity to evaluate your patient. For Medicare and Medicare HMO plans, please review the plan of care and approve it. It will need to be FAXED BACK to us at [phone] for Medicare purposes. For Medicare only, by signing this I certify the plan of care. Please let me know if there are questions or concerns regarding this plan of care. Physician Signature: Date:
--- NOTE | 2022-03-29 14:27 | HP.PTREVAL_ITS ---
Dr. Meera James, DO, It has been my pleasure to treat TOI SANDOVAL over the last 6 visits for Knee OA, Poor Gait/Balance. Please see the progress note below for an update on the physical therapy plan of care! Subjective: Pt. reports overall doing okay. I am seeing her for her recheck this date. Pt. reports having continued issues with her dizziness. Pt. arrives using walker. No pain noted. Objective/Function: MMT: Pt. has decent BLE strength. symmetrically noted. 4+/5 throughout. GAIT: ambulated with FWW with good VAN tolerance. I had to ambulate with out AD with significantly worse balance and ataxia noted. Pt. had marked lateral and AP swaying, has marked high guard posture without AD. Pt. had parked increased ataxia today. She reports that this happens, I have good days then bad ones.. She reports wanting to work on walking with a quad cane. I told her that currently this is a bad idea as she really needs to use the FWW. I am okay with working on a quad cane with goal of progressing towards if able, but I told her this might not be possible if not improving. I want to work on her ataxia with focus controlled reciprocal movements. Plan Plan: Work on her ataxia with focused and controlled reciprocal movements. Consider delay the disease like program with stability and control. Progress these exercises to HEP. May need to work on seated versions for home initially. Balance/Gait/Functional tests - Balance/Special Test Scores Functional Gait Assessment Score: 10 % Disability: 66.6700 Lower Extremity Functional Score: 29 TUG Test Time Seconds: 22.3 Tug Test: 20-30sec.=variable mobility Goals Goal 1:: LTG: Pt. to be I with HEP for vestibular, gait, and BLE strength. Goal Time Frame: 4-6 Weeks Goal Progress: Progressing Goal 2:: LTG: Pt. to walk throughout home with good safety with least restrictive device. Goal Time Frame: 4-6 Weeks Goal Progress: Progressing Goal 3:: LTG: Pt. to ambulate unlimited distances with LRD with good safety and I. Goal Time Frame: 4-6 Weeks Goal Progress: Progressing Goal 4:: STG: Pt. to report decreased vestibular symptoms with daily activities. (she continues to have a chronic dizziness that never relieves.) Goal Time Frame: 2-4 Weeks Goal Progress: Not Progressing Goal 5:: LTG: Pt. to have have improved TUG time to less than 12 seconds without use of AD. (22.3sec without AD, fairly imbalance, difficulty with directional changes.) Goal Time Frame: 4-6 Weeks Goal Progress: Not Progressing Goal 6:: LTG: Pt to have improved FGA to at least 15/30 indicating improved balance and safety. (FGA 10/50) Goal Progress: Not Progressing Anticipated Interventions Patient/Client Instruction: Educate patient on: Condition, Plan of Care, Risk Factors, Benefits of Fitness Program For the Purpose of:: To improve decision making, To facilitate caregiver knowledge, To improve self management, To prevent re-injury, To improve ability to perform tasks related to life management, To improve tolerance to ADL's Therapeutic Exercise to Include: Strength training, Power training, Endurance training, Balance training, Postural training, Flexibilty training, Gait and locomotor training For the Purpose of:: To decrease pain, To increase ROM, To improve nutrient delivery to tissue, To increase oxygenation perfusion, To improve gait and locomotor functions, To improve health of tissue, To decrease soft tissue restriction, To increase flexibility/ROM, To improve endurance, To improve balance, To improve safety with gait Please do not hesitate to contact me at [phone] by phone or Fax: if you have questions or concerns regarding this new plan of care! Sincerely, MABLE MeredithT
== END 2022-04-03 19:00 | disposition home or self-care (01) ==
LOC: PT 15:30
PROVIDERS: PCP Internal Medicine; Referring Provider Internal Medicine; Visit Provider Internal Medicine
DX: M17.9 Osteoarthritis of knee, unspecified (principal); R26.81 Unsteadiness on feet
CPT/HCPCS: 97110; 97161; 97164

== ENCOUNTER → 2022-06-25 | Outpatient (CLI) | payer OTHER, SELFPAY ==
--- NOTE | 2022-06-25 13:57 | EKG12_ITS ---
Test Reason : Blood Pressure : / mmHG Vent. Rate : 090 BPM Atrial Rate : 090 BPM P-R Int : 132 ms QRS Dur : 068 ms QT Int : 340 ms P-R-T Axes : 002 -02 033 degrees QTc Int : 415 ms Normal sinus rhythm Normal ECG Confirmed by TERRENCE CARVALHO, NANCI ([id number]), associate entertainment editor HANG SKINNER ([id number]) on 06/27/2022 10:10:04 AM Referred By: Saray Dougherty Confirmed By:ALONZO OCAMPO MD
[2022-06-25 15:33] LABS: Anion Gap 5 (5-15); BUN 18 mg/dL (7-18); BUN/Creat Ratio 30.1 RATIO (10-20); Calcium,Total 10.2 mg/dL (8.5-10.1); Chloride 106 mmol/L (98-107); EST Glomerular Filtration Rate 106 mL/min (>60); Est Glom Filt Rate - Afr Amer 128 mL/min (>60); Glucose 123 mg/dL (74-106); Potassium 3.7 mmol/L (3.5-5.1); Sodium Level 137 mmol/L (136-145)
[2022-06-25 17:58] LABS: Hemoglobin A1c < 3.8 % (3.8-5.6)
== END | disposition home or self-care (01) ==
LOC: PSN 13:51
PROVIDERS: PCP Internal Medicine; Referring Provider Physician Assistant; Visit Provider Physician Assistant
DX: Z01.810 Encounter for preprocedural cardiovascular examination (principal); I10 Essential (primary) hypertension
CPT/HCPCS: 36415; 80048; 83036; 93005

== ENCOUNTER → 2022-07-18 | Outpatient (CLI) | payer OTHER, SELFPAY ==
--- NOTE | 2022-07-18 14:48 | VDLE_ITS ---
Reason For Study: Pain RIGHT LEFT GSV is normal. GSV is normal. CFV is compressible, spontaneous, phasic, CFV is compressible, spontaneous, phasic, competent and demonstrates normal competent, and demonstrates normal augmentation. augmentation. FV is compressible, spontaneous, phasic, FV is compressible, spontaneous, phasic, competent and demonstrates normal competent and demonstrates normal augmentation. augmentation. POP V is compressible, spontaneous, phasic, POP V is compressible, spontaneous, phasic, competent and demonstrates normal competent and demonstrates normal augmentation. augmentation. T/P Trunk is compressible. T/P Trunk is compressible. PTV is compressible. PTV is compressible. RT PerV is compressible. LT PerV is compressible. Procedure This is a venous duplex using B-mode, color flow and spectral Doppler. Exam performed in department. A preliminary report was called and/or faxed to [facility]. VL/Venous Duplex US - Ray Extrem Interpretation Summary No evidence for acute deep venous thrombosis bilateral lower extremities with p atent and compressible bilateral great saphenous veins. Ordering Physician: Saray Duogherty Referring Physician: Meera James M.D. Performed By: Lori Rosa RVT
== END | disposition home or self-care (01) ==
LOC: CVS 14:40
PROVIDERS: PCP Internal Medicine; Referring Provider Physician Assistant; Visit Provider Physician Assistant
DX: M79.662 Pain in left lower leg (principal); M79.661 Pain in right lower leg
CPT/HCPCS: 93970

== ENCOUNTER 2023-05-17 17:14 | Emergency (ER) | payer OTHER, SELFPAY ==
[2023-05-17 17:18] VITALS: BP 122/78; PULSE 108; RESP 16; TEMP 36.5; O2SAT 96
[2023-05-17 17:23] VITALS: BP 122/78; PULSE 108; RESP 16; TEMP 36.5; O2SAT 95
[2023-05-17 17:35] VITALS: O2SAT 96
--- NOTE | 2023-05-17 17:40 | EDS_ITS ---
HPI History of Present Illness Chief Complaint: Shortness of Breath Informant: patient Onset/Context/Timing Onset: Days (2) Context: Sudden Onset Timing: Continuous Quality: Sharp Location: Right lower chest Worsened by: Cough, movement Relieved by: Nothing Narrative Narrative: Patient presents with right rib pain that began 2 days ago. Patient states she felt getting into her wheelchair and hit her right ribs on the armrest of her wheelchair. Patient states her pain is sharp. Patient states it is worse with any coughing or movement. Patient denies any fevers or chills. Patient admits to a cough but denies any sputum production. Patient admits to some rhinorrhea. Patient states her pain is localized to the right lower chest. [facility] Medical History (Updated 05/17/23 @ 20:[address] Sawyer Lagunas DO) Ataxia Home Medications amlodipine 5 mg tablet 5 mg PO DAILY 07/12/18 [History Last Taken 07/12/18 5 MG] empagliflozin 25 mg tablet (Jardiance) 25 mg PO DAILY 07/12/18 [History Last Taken 07/12/18 25 MG] fenofibrate nanocrystallized 145 mg tablet 145 mg PO DAILY 07/12/18 [History Last Taken 07/12/18 145 MG] metformin 1,000 mg tablet 1,000 mg PO BIDCM 07/12/18 [History Last Taken 07/12/18 1000 MG] valsartan 320 mg-hydrochlorothiazide 25 mg tablet 1 ea PO DAILY 07/12/18 [History Last Taken 07/12/18 1 EACH] Allergy/AdvReac Type Severity Reaction Status Date / Time Penicillins [PCN] Allergy Unknown Verified 05/17/23 17:17 Surgical History (Updated 05/17/23 @ 17:[address] Sawyer Lagunas DO) Hx of cholecystectomy Hx of repair of rotator cuff Social History Smoking Status: Former smoker ROS ROS ED Constitutional Constitutional ED: Denies chills or fever(s) Eyes Eyes: Reports blurry vision; Denies change in vision ENT ENT ED: Denies rhinorrhea or sore throat Cardiovascular Cardiovascular: Reports chest pain; Denies palpitations Respiratory/Chest Respiratory/Chest: Reports cough and dyspnea Gastrointestinal Gastrointestinal: Denies nausea or vomiting Genitourinary Genitourinary ED: Denies dysuria or hematuria Musculoskeletal Musculoskeletal: Reports back pain; Denies neck pain Integumentary Denies abscess or rash Neurologic Neurologic: Denies headache(s) or weakness Allergic/Immunologic Allergic/Immunologic ED: Denies mouth swelling or urticaria EXAM Physical Exam Const Vital Signs: 05/17/23 17:18 05/17/23 17:23 05/17/23 17:35 Temperature 97.7 F L 97.7 F L Temperature Source Temporal Temporal Pulse Rate 108 H 108 H Respiratory Rate 16 16 Respiratory Effort Normal Non-Labored Respiratory Depth Normal Respiratory Pattern Normal Blood Pressure 122/78 H 122/78 H Blood Pressure Mean 92 92 Pulse Ox 96 95 Oxygen Delivery Method Room Air Room Air Room Air Positive well nourished and well developed General Appearance ED: well developed and NAD HEENT Reports moist mucous membranes Neck supple and no JVD Chest Wall Chest Narrative: There is tenderness over the right lower ribs. There is no bony crepitance or step-off. There is no subcutaneous emphysema noted. Resp normal respiratory effort and clear to auscultation bilaterally Cardio regular rate and regular rhythm GI non-tender and non-distended Palpation: soft Neuro oriented x3, CN's II-XII intact bilaterally and no sensory deficits noted Sensorium / Orientation: alert Psych mental status grossly normal MDM MDM MDM Narrative Medical decision making narrative: Differential diagnosis includes rib fracture, chest wall contusion, and pneumothorax. X-rays of the right ribs will be obtained to assess for fracture and pneumothorax. Radiography Diagnostic Testing: Clinical Impression(s) from Imaging Studies Ribs w/Chest X-Ray 05/17/23 18:14 IMPRESSION: RIBS: Normal x-ray examination of the ribs. CHEST: Linear densities across both lung bases consistent with scarring or subsegmental atelectasis. Electronically Signed: Rashad Patel MD at 18:52 EST , X-rays of the right ribs were obtained. There are 5 views. On my independent interpretation, there is no acute fracture. There is no pneumothorax. Radiologist also interpreted the x-rays and agrees. Treatment and Re-Evaluation :: Patient was given an injection of morphine. Patient is feeling better on reevaluation. Patient was advised of her findings. Patient states that Tylenol was doing well for her pain. Patient was instructed to continue that. Patient was instructed to take 10-15 deep breaths every hour while awake to prevent atelectasis and pneumonia. Patient was instructed to follow-up with her primary care physician in 5 to 7 days. Patient was instructed use ice packs. Patient understood and was agreeable with the plan. All questions were answered. Discharge Plan Triage Chief Complaint: Shortness of Breath ED Provider: Saywer Lagunas Dx/Rx/DC Orders Clinical Impression: Contusion of right chest wall, Fall Instructions: ED Chest Wall Contusion Prescriptions: No Action amlodipine 5 MG tablet 5 mg PO DAILY valsartan-hydrochlorothiazide 1 EACH tablet 1 ea PO DAILY fenofibrate nanocrystallized 145 MG tablet 145 mg PO DAILY empagliflozin [Jardiance] 25 MG tablet 25 mg PO DAILY metformin 1,000 MG tablet 1,000 mg PO BIDCM Primary Care Provider: Meera James Referrals: Meera James DO [Primary Care Provider] - 5-7 Days Disposition Disposition: Home, Self Care
--- NOTE | 2023-05-17 18:14 | RAD_ITS ---
STUDY: X-RAY - UNILATERAL RIBS ( RIGHT ) WITH CHEST REASON FOR EXAM: Female, 67 years old. Trauma TECHNIQUE - RIBS: 4 view(s) of the ribs. TECHNIQUE - CHEST: Single AP portable view of the chest. COMPARISON: 02/24/2004. FINDINGS - RIBS: Normal visualized ribs without a demonstrated fracture. FINDINGS - CHEST: The lungs are adequately expanded. Mild linear scarring or subsegmental atelectasis in both lung bases. There is no demonstrated pleural abnormality. Normal size heart. Normal mediastinum and nanci. Normal visualized pulmonary arteries. Normal visualized aortic arch and descending thoracic aorta. Normal visualized thoracic spine. Normal visualized ribs, clavicles, and shoulders. There is no demonstrated abnormality of the visualized soft tissue structures of the upper abdomen. RAD/Ribs Uni Min 3V w/PA Chest IMPRESSION: RIBS: Normal x-ray examination of the ribs. CHEST: Linear densities across both lung bases consistent with scarring or subsegmental atelectasis. Electronically Signed: Rashad Patel MD at 18:52 EST ,
[2023-05-17 18:54] VITALS: BMI 31.0
[2023-05-17 20:09] VITALS: BP 120/74; PULSE 76; RESP 16; TEMP 36.6; O2SAT 97
== END 2023-05-17 20:11 | disposition home or self-care (01) ==
PROVIDERS: Emergency Provider Emergency Medicine; PCP Internal Medicine; Visit Provider Emergency Medicine
DX: S20.211A Contusion of right front wall of thorax, initial encounter (principal); R06.02 Shortness of breath; W05.0XXA Fall from non-moving wheelchair, initial encounter; Z79.84 Long term (current) use of oral hypoglycemic drugs; Z79.899 Other long term (current) drug therapy; Z87.891 Personal history of nicotine dependence
CPT/HCPCS: 71101; 99282

== ENCOUNTER → 2023-06-21 | Outpatient (CLI) | payer OTHER, SELFPAY ==
[2023-06-21 08:21] LABS: Mucous, Urine 0 SEEN /hpf (<or=2+); Red Blood Cells-Urine 0 SEEN /hpf (0-5)
[2023-06-21 08:52] LABS: Absolute Lymphocyte Count 2.07 X10^3/uL (0.83-4.51); Absolute Neutrophil Count 6.6 X10^3/uL (2.0-7.7); Basophil# 0.07 X10^3/uL; Basophil% 0.7 % (0-1); Eosinophils% 3.9 % (0-5); Hematocrit 39.1 % (37-47); Hemoglobin 12.4 g/dL (12.0-15.0); Lymphocyte # 2.07 X10^3/ul (0.83-4.51); Lymphocyte % 20.4 % (19-41); Mean Corp Hgb Conc 31.7 g/dL (32-36); Mean Corpuscular Hgb 28.1 pg (27.0-32.0); Mean Corpuscular Volume 88.7 fL (81-99); Monocyte# 0.95 X10^3/uL; Monocyte% 9.4 % (0-10); NRBC Flagged by Analyzer 0 % (0-5); Neutrophil # 6.59 X10^3/uL (2.7-7.7); Neutrophil % 64.9 % (47-70); Platelet Count 468 K/mm3 (150-450); RBC Distribution Width CV 14.4 % (11.6-14.6); RBC Distribution Width SD 46.5 fl (35.1-43.9); Red Blood Count 4.41 M/mm3 (4.2-5.4); White Blood Count 10.2 K/mm3 (4.4-11.0)
[2023-06-21 09:16] LABS: Vitamin D,25 Hydroxy 31.6 ng/mL
[2023-06-21 09:23] LABS: ALB/GLOB Ratio 0.9 RATIO (0.9-2.4); AST(SGOT) 8 U/L (15-37); Alanine Aminotransfer ALT/SGPT 12 U/L (13-56); Albumin, Serum 3.3 g/dL (3.2-5.0); Alkaline Phosphatase 99 U/L (45-117); Anion Gap 7 (5-15); BUN 17 mg/dL (7-18); Calcium,Total 10.2 mg/dL (8.5-10.1); Chloride 110 mmol/L (98-107); Cholesterol 180 mg/dL (200); Creatinine, Serum 0.71 mg/dL (0.55-1.02); EST Glomerular Filtration Rate 87 mL/min (>60); Est Glom Filt Rate - Afr Amer 105 mL/min (>60); Globulin 3.8 g/dL (2.2-4.2); Glucose 143 mg/dL (74-106); High Density Lipoprotein 34 mg/dL; Potassium 3.7 mmol/L (3.5-5.1); Protein, Total 7.1 g/dL (6.4-8.2); Sodium Level 140 mmol/L (136-145); Thyroid Stim Hormone (TSH) 2.16 uIU/mL (0.358-3.74); Triglycerides 328 mg/dL; Very Low Density Lipoprotein 66 mg/dL (5-40)
[2023-06-21 10:16] LABS: Hemoglobin A1c 6.4 % (3.8-5.6)
[2023-06-21 15:13] LABS: Color, Urine Yellow (Yellow); Glucose, Dipstick Normal (Normal); Ketone-Dipstick Negative (Negative); Leukocyte Esterase-Dipstick 25 /ul (Negative); Nitrite-Dipstick Negative (Negative); Occult Blood-Urine Negative /ul (Negative); Protein-Dipstick Negative (Negative); Specific Gravity, Urine 1.025 (1.002-1.030); Urine Bilirubin Dipstick Negative (Negative); Urine Clarity Sl. Cloudy (Clear); Urine Urobilinogen Normal (Normal)
[2023-06-21 15:33] LABS: Microalbumin,Random Urine 14.7 mg/L (NO RANGE EST.); Microalbumin:Creatinine Ratio 16.2 mg/g CRE (<30 mg/g CRE)
[2023-06-21 15:37] LABS: Bacteria 2+ /hpf (None Seen); Squamous Epithelial Cells - UA 5-10 SEEN /hpf (5-10); White Blood Cells 0-5 SEEN /hpf (0-5)
== END | disposition home or self-care (01) ==
PROVIDERS: PCP Internal Medicine; Referring Provider Internal Medicine; Visit Provider Internal Medicine
DX: E78.00 Pure hypercholesterolemia, unspecified (principal); E11.9 Type 2 diabetes mellitus without complications; R27.0 Ataxia, unspecified; E55.9 Vitamin D deficiency, unspecified; I10 Essential (primary) hypertension
CPT/HCPCS: 36415; 80053; 80061; 81001; 82043; 82306; 82570; 83036; 84443; 85025

== ENCOUNTER → 2023-07-18 | Outpatient (CLI) | payer OTHER, SELFPAY ==
--- NOTE | 2023-07-18 14:58 | BI_ITS ---
MAMMOGRAPHY - BILATERAL SCREENING REASON FOR EXAM: Female, 67 years old. Routine annual screening examination. PERTINENT HISTORY: Sisters with breast cancer. TECHNIQUE: Digital bilateral breast ori (3D mammographic acquisition) in the CC and MLO projections. 2-D mediolateral oblique (MLO) and craniocaudad (CC) views of both breasts were obtained. CAD: Full Field Digital Mammography with Computer Added Detection was performed. COMPARISON: Comparison is made with prior study dated November 10, 2019 and August 04, 2018. FINDINGS: Breast Composition: There are scattered areas of fibroglandular density. There are no dominant masses or suspicious calcifications. No other significant abnormalities are identified. There has been no significant change since the prior study. BI/SCRN MAMM (CAD)W/ORI BILAT IMPRESSION: Stable bilateral screening mammogram. Yearly follow-up mammogram recommended. (A) ASSESSMENT CATEGORY: BIRADS Category 1: Negative. A letter regarding these results will be sent to the patient by the facility within 30 days. Approximately 10% of breast cancers are not detected by mammography. A normal mammogram should not delay biopsy of a clinically suspicious abnormality. [id number] Electronically Signed: Oliverio Echavarria MD at 8:29 EDT ,
--- NOTE | 2023-07-18 15:03 | BD_ITS ---
STUDY: DUAL ENERGY X-RAY ABSORPTIOMETRY / DXA REASON FOR EXAM: Female, 67 years old. [id number] TECHNIQUE: Bone Mineral Density (BMD) measurements of lumbar spine and bilateral hips were obtained. COMPARISON: Comparison is made with prior study November 10, 2019. FINDINGS: Lumbar Spine (L1-L4): g/cm2 (0.768) / T-score (-2.5) / Z-score (-0.5) Findings are suggestive of osteoporosis with a high fracture risk. Left Femur Total: g/cm2 (0.682) / T-score (-2.1) / Z-score (-0.7) Left Femoral Neck: g/cm2 (0.596) / T-score (-2.3) / Z-score (-0.6) Right Femur Total: g/cm2 (0.780) / T-score (-1.3) / Z-score (0.1) Right Femoral Neck: g/cm2 (0.524) / T-score (-2.9) / Z-score (-1.2) The T-Scores on the most recent prior examination were: Lumbar Spine (L1-L4): There has been worsening of bone density since the previous examination. Left Femur Total: which represents a worsening of 26.1%. Right Femur Total: which represents a worsening of 21%. BD/Dexa Bone Density Study IMPRESSION: The patient is considered osteoporotic as outlined below according to World Blade Organization (WHO) criteria with a high fracture risk. There has been worsening of bone density since the previous examination. Reference Information: The T-score is the number of standard deviations above or below the standard which is normal for young adults at their peak bone mineral density. The World Health Organization (WHO) interprets the T-scores as follows: Above -1 Normal bone density Between -1 and -2.5 Osteopenia Equal to / or below -2.5 Osteoporosis As a practical clinical guideline, osteopenia may be graded as follows: Mild -1 through -1.5 Moderate -1.6 through -2.0 Severe -2.1 through -2.4 The Z-score is the number of standard deviations above or below age-matched controls. A Z-score of less than -1.5 would be considered abnormal. References: 1. NIH Osteoporosis and Related Bone Diseases www osteo.org 2. International Society for Clinical Densitometry www iscd.org 3. National Osteoporosis Foundation www nof.org Electronically Signed: Oliverio Echavarria MD at 9:43 EDT ,
== END | disposition home or self-care (01) ==
LOC: OPBD 14:57
PROVIDERS: PCP Internal Medicine; Referring Provider Internal Medicine; Visit Provider Internal Medicine
DX: Z12.31 Encounter for screening mammogram for malignant neoplasm of breast (principal); Z78.0 Asymptomatic menopausal state
CPT/HCPCS: 77063; 77067; 77080

== ENCOUNTER 2023-08-30 13:30 | Outpatient (RCR) | payer OTHER, SELFPAY ==
--- NOTE | 2023-03-19 12:48 | HP.PTEVAL_ITS ---
Patient's Visit Information Visit Information Visit Information: TOI SANDOVAL is a 67 year old F referred to Physical Therapy by Dr. Meera James DO with a diagnosis of Weakness. 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 She wants to focus on balance, endurance and strength. The loss of mobility has been really hard. She lives with her and he is supportive. Lives in a ranch with a single step to the master bedroom- but its doable- single step to enter home with no rails but places to grab. She is not able to get in/out indep- or daughter helps- daughter lives 5 min away. She has a cleaning lady, daughter and . Grocery shopping daughter and uses the electric cart. Uses the w/c around the house- takes lifts the chair up/down the step 1x a day. She bathes herself and has a seat she sits on. She can perform all of her own transfers with a walker. Last fall was Apr when she broke her back. FWW and a rollater. They do have the ability to have a gym membership and her daughter is her parts casting machine operator home health aide. She has pain in her back that comes and goes. No pain in the last couple of days. Last time she had pain was about 2 weeks ago- its related to movement bothers her. Normally wears she wears tennis shoes but she has some foot pain. [employer]- 1x a week for a drum class and has been trying to get there more often. Does have some dizziness and double vision- PMHX/Meds: will bring next visit Objective Objective: Posture: Forward head, rounded shoulder, increased kyphosis Gait: pushed back to tx room in w/c- ambulated 50 feet with FWW with w/c follow and CGA with gait belt- shortened stride and slow judi HR/TR able with UE A Strength: Core: poor, Hip: 4/5 throughout, Knee: 4+/5 Ankle: 4+/5 Flex: HS: moderate, Gastroc: moderate Transfers: sit to stand: SBA single UE Balance/Special Test Scores Functional Gait Assessment Score: 10 % Disability: 66.6700 Lower Extremity Functional Score: 23 Goals Goal 1:: Patient will report participation in home exercise program activities a minimum of 5 days per week, as adjunct to skilled physical therapy intervention in preparation for independent home management upon discharge. Goal Time Frame: 4-6 Weeks Goal 2:: Patient will report an increase of 9 points on the LEFS to show minimal clinical significant difference on patients functional outcome measure. Goal Time Frame: 4-6 Weeks Goal 3:: Patient will ascend/descend 4+ stairs reciprocally with a single handrail to demonstrate increased LE functional strength and ease community mobility. Goal Time Frame: 4-6 Weeks Goal 4:: Patient will decrease TUG test to less than 20 seconds with least restrictive device to demonstrate improved balance and increase safety with ADL?s. Goal Time Frame: 4-6 Weeks Goal 5:: Patient will perform a sit to stand from chair without use of upper extremity x5 repetition to demonstrate increase LE functional strength and ease community mobility. Goal Time Frame: 4-6 Weeks Goal 6:: Patient will report 80% improvement Goal Time Frame: 4-6 Weeks Rehabilitation Potential Physical Therapy Diagnosis: Patient presents with hypomobility- she has decreased LE and core strength/stabilization, proprioception, flex and muscular endurance leading to abnormal gait, balance and decreased ability to perform ADL 's. Rehabilitation Potential: Fair Anticipated Interventions Patient/Client Instruction: Educate patient on: Benefits of Fitness Program Therapeutic Exercise to Include: Strength training, Endurance training, Balance training, Coordination, Agility training, Body mechanics, Postural training, Flexibilty training, Gait and locomotor training, Neuromotor development, Dynamic Lumbar Stabilization and Scapular Strength/Stabilization For the Purpose of:: To improve muscle performance and motor function Text: Thank you for the opportunity to evaluate your patient. For Medicare and Medicare HMO plans, please review the plan of care and approve it. It will need to be FAXED BACK to us at [phone] for Medicare purposes. For Medicare only, by signing this I certify the plan of care. Please let me know if there are questions or concerns regarding this plan of care. Physician Signature: Date:
--- NOTE | 2023-04-23 11:29 | HP.PTREVAL_ITS ---
Re-Evaluation Intro: Dr. Meera James, DO, It has been my pleasure to treat TOI SANDOVAL over the last 9 visits for Weakness. Please see the progress note below for an update on the physical therapy plan of care! Subjective Subjective: Pt. arrives from pool with daughter. They both report that she has seen some improvement in aquatic PT. They are hoping to do land PT and continue with aquatics on there own. Pt. does have some L foot pain during stance, been there for a few weeks now. Objective Objective/Function: Pt. repots walking more at home with FWW with assistance from daughter. 5 rep sit to stand 39 sec with use of Ues gait: Pt. ambulated 138' with FWW with CGA. Pt. requires frequent reminders to stay with in CLE[place] of AD, as AD tends to get too far out in front of her. Pt. reports fatigue as limiting factor with gait. MMT: RLE: 4/5 throughout; LLE 4/5 throughout. Pt. continues to have increased core weakness STAIRS: Pt. complete 5 steps with 2 HR with min A. Pt's gait is not so much antalgic as her motor control seems to be lacking. He knee stability is intermittent, often going into hyper extension. Plan Plan Plan: focus on land PT x1 per week. Focus on gait progression, LE strengthening (progress to HEP), add in balance to increase stability with gait. Pt. struggles with her motor control and some repeated motor control of her BLEs should be address as well. Balance/Gait/Functional tests Balance/Special Test Scores Functional Gait Assessment Score: 10 % Disability: 66.6700 Lower Extremity Functional Score: 23 TUG Test Time Seconds: 31 Tug Test: >30sec.=impaired mobility Goals Goals Goal 1:: Patient will report participation in home exercise program activities a minimum of 5 days per week, as adjunct to skilled physical therapy intervention in preparation for independent home management upon discharge. Goal Time Frame: 4-6 Weeks Goal Progress: Progressing Goal 2:: Patient will report an increase of 9 points on the LEFS to show minimal clinical significant difference on patients functional outcome measure. Goal Time Frame: 4-6 Weeks Goal Progress: Progressing Goal 3:: Patient will ascend/descend 4+ stairs reciprocally with a single handrail to demonstrate increased LE functional strength and ease community mobility. Goal Time Frame: 4-6 Weeks Goal Progress: Progressing Goal 4:: Patient will decrease TUG test to less than 20 seconds with least restrictive device to demonstrate improved balance and increase safety with ADL? s. Goal Time Frame: 4-6 Weeks Goal Progress: Progressing Goal 5:: Patient will perform a sit to stand from chair without use of upper extremity x5 repetition to demonstrate increase LE functional strength and ease community mobility. Goal Time Frame: 4-6 Weeks Goal Progress: Progressing Goal 6:: Patient will report 80% improvement Goal Time Frame: 4-6 Weeks Goal Progress: Progressing Anticipated Interventions Anticipated Interventions Patient/Client Instruction: Educate patient on: Benefits of Fitness Program Therapeutic Exercise to Include: Strength training, Endurance training, Balance training, Coordination, Agility training, Body mechanics, Postural training, Flexibilty training, Gait and locomotor training, Neuromotor development, In an aquatic setting, Dynamic Lumbar Stabilization and Scapular Strength/Stabilization For the Purpose of:: To improve muscle performance and motor function Re-Evaluation Ending Re-evaluation ending: Please do not hesitate to contact me at [phone] by phone or Fax: if you have questions or concerns regarding this new plan of care! Sincerely, Quoc Burt DPT
--- NOTE | 2023-06-17 09:07 | HP.PTREVAL ---
Re-Evaluation Intro: Dr. Meera James, DO, It has been my pleasure to treat TOI SANDOVAL over the last 15 visits for Weakness. Please see the progress note below for an update on the physical therapy plan of care! Subjective Subjective: Pt and her daughter have been consistent with aquatic exercise at [place]. Pt and her dtr would like more strengthening exercises and stretching to do at home. Pt is able to be wheeled into her house, but would like to practice stairs to get in and out of her sons house. Overall have been very happy with what they have worked on with Maty during land PT. Objective Objective/Function: MMT: global 3+/5 LE strength STS: min VCs to push up from the table, good carryover with adjusting for ant forward lean and not using table behind legs GAIT: difficulty with coordinating equal steps, with concentration and simple cueing pt able to have more consistent performance, using FWW and SBA NEURO: sitting balance Good+, able to correct to more upright posture but resting position was sacral sitting STAIRS: navigated an 8 step in // with heavy UE support and CGA Pt and dtr heavily educated on updated HEP and safety with balance. Will continue with gait and LE strength with a focus on functional stamina, posture, balance, and overall confidence with mobility. Stairs present the greatest challenge for pt with fear, strength, and balance Plan Plan Plan: focus on land PT x1 per week. Focus on gait progression, LE strengthening (progress to HEP), add in balance to increase stability with gait. Pt. struggles with her motor control and some repeated motor control of her BLEs should be address as well. WORK ON: gait, stairs, dynamic standing balance and strength Balance/Gait/Functional tests Balance/Special Test Scores Functional Gait Assessment Score: 10 % Disability: 66.6700 Lower Extremity Functional Score: 23 TUG Test Time Seconds: 31 Tug Test: >30sec.=impaired mobility Goals Goals Goal 1:: Patient will report participation in home exercise program activities a minimum of 5 days per week, as adjunct to skilled physical therapy intervention in preparation for independent home management upon discharge. Goal Time Frame: 4-6 Weeks Goal Progress: Goal Met Goal 2:: Patient will report an increase of 9 points on the LEFS to show minimal clinical significant difference on patients functional outcome measure. Goal Time Frame: 4-6 Weeks Goal Progress: Progressing Goal 3:: Patient will ascend/descend 4+ stairs reciprocally with a single handrail to demonstrate increased LE functional strength and ease community mobility. Goal Time Frame: 4-6 Weeks Goal Progress: Progressing Goal 4:: Patient will decrease TUG test to less than 20 seconds with least restrictive device to demonstrate improved balance and increase safety with ADL?s. Goal Time Frame: 4-6 Weeks Goal Progress: Progressing Goal 5:: Patient will perform a sit to stand from chair without use of upper extremity x5 repetition to demonstrate increase LE functional strength and ease community mobility. Goal Time Frame: 4-6 Weeks Goal Progress: Progressing Goal 6:: Patient will report 80% improvement Goal Time Frame: 4-6 Weeks Goal Progress: Progressing Anticipated Interventions Anticipated Interventions Patient/Client Instruction: Educate patient on: Benefits of Fitness Program Therapeutic Exercise to Include: Strength training, Endurance training, Balance training, Coordination, Agility training, Body mechanics, Postural training, Flexibilty training, Gait and locomotor training, Neuromotor development, In an aquatic setting, Dynamic Lumbar Stabilization and Scapular Strength/Stabilization For the Purpose of:: To improve muscle performance and motor function Re-Evaluation Ending Re-evaluation ending: Please do not hesitate to contact me at [phone] by phone or if you have questions or concerns regarding this new plan of care! Sincerely, Quoc Burt DPT
== END 2023-08-30 19:00 | disposition home or self-care (01) ==
LOC: PT 13:30
PROVIDERS: PCP Internal Medicine; Referring Provider Internal Medicine; Visit Provider Internal Medicine
DX: R26.0 Ataxic gait (principal); R29.898 Other symptoms and signs involving the musculoskeletal system
CPT/HCPCS: 97110; 97113; 97162; 97164; 97530

== ENCOUNTER 2024-01-17 10:00 | Outpatient (RCR) | payer OTHER, SELFPAY | END 2024-01-17 19:00 | disposition home or self-care (01) | LOC: PT 10:00 | PROVIDERS: PCP Internal Medicine; Referring Provider Internal Medicine; Visit Provider Internal Medicine | DX: R29.898 Other symptoms and signs involving the musculoskeletal system (principal); R26.81 Unsteadiness on feet; R27.0 Ataxia, unspecified | CPT/HCPCS: 97110 ==